=== PATIENT | male | born 1995 | race Caucasian/White ===

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

== ENCOUNTER → 2019-10-09 | Outpatient (CLI) | payer OTHER | LOC: ZCOL.LAB 16:12 | DX: J02.9 Acute pharyngitis, unspecified (principal); R06.02 Shortness of breath; R50.9 Fever, unspecified; Z20.828 Contact with and (suspected) exposure to other viral communicable diseases ==